=== PATIENT | female | born 1935 | race Caucasian/White ===

== ENCOUNTER → 2017-01-13 | Day surgery (SDC) | payer MEDICARE, BC ==
--- NOTE | 2017-01-12 12:25 | MH ---
cc: JULIA TOBAR M.D. DATE OF ADMISSION: 01/13/2017 DATE OF 1935 CHIEF COMPLAINT Chronic otitis. HISTORY An 81-year-old female with left serous otitis. She has been treated medically, not improved. She continues with conductive hearing loss, left otitis media. She will undergo left myringotomy and T-tube under general anesthesia. She was not able tolerate this under local. PAST MEDICAL HISTORY As above. CURRENT MEDICATIONS 1. Diazepam 5 mg tablet. 2. Dorzolamide - Timolol drops. 3. Epinastine. 4. Hydrocodone/acetaminophen 5/325 tablet. 5. Latanoprost. 6. Lisinopril. 7. Metronidazole gel. MEDICATION ALLERGIES ALPHAGAN P. AMBIEN. CIPROFLOXACIN. LATEX CONTACT ALLERGY. PHYSICAL EXAMINATION GENERAL: A Well-developed, well-nourished female in no apparent distress. HEENT: Normocephalic, atraumatic. Extraocular motions intact. External canals clear. Tympanic membrane on the left retracted with serous fluid. Nasal exam shows no lesion. Lips, oral mucosa and oropharynx show no mass. CHEST: Clear to auscultation. HEART: Regular rate. ABDOMEN: Soft. EXTREMITIES: No lesion. NEUROLOGIC: Nonfocal. ASSESSMENT AND PLAN An 81-year-old female with left chronic otitis media to undergo left myringotomy and T-tube under general anesthesia. The risks and benefits were discussed with the patient. The risks include but are not limited to those of anesthesia, bleeding, unfavorable scarring, TM perforation, early tube extrusion, tube retention requiring removal, tube otorrhea requiring removal, early tube extrusion, hearing loss, cholesteatoma. The patient states she understands and accepts the risks of the procedure. MD SUNG Sainz/JASON /11:58 AM /12:11 PM
[~2017-01-13] VITALS: Ht 165.1 cm; Wt 52.1 kg
[~2017-01-13] MED LIST: ACETAMINOPHEN 500 MG CPLT PO PRN; CENTCHW4 CHEW; CHLORHEXIDINE GLUCONATE 2 % 1 PACK (2 CLOTHS) TOPICAL PRN; CITRTAB7 PO; CLAR10CA3 PO; DO NOT ADM ANY ANTICOAGULANT DRUGS PRN; DORZ2SOL LEFT EYE; ELES0.05 LEFT EYE; FAMOTIDINE 20 MG/2 ML VIAL ONE; FEXO15TA PO; INSULIN HUMAN REGULAR 1,000 UNITS/10 ML VIAL SQ PRN; LACTATED RINGER'S 1000 ML IV PRN; LATA0.002 LEFT EYE; LISI10TA3 PO; METOPROLOL TARTRATE 25 MG TAB PO PRN; MORPHINE SULFATE 4 MG/ML INJ IV PRN; OCEA0.653 EACH NARE; OCUVTAB4 PO; OFLOXACIN 0.3% OPTH SOLN 5 ML BTL ONE; ONDANSETRON HCL 4 MG/2 ML VIAL IV PUSH ONE; ONDANSETRON HCL 4 MG/2 ML VIAL IV PUSH PRN; POVIDONE IODINE 5% (ANTISEPSIS KIT) 4 APPLICATIONS EACH NARE PRN; PRAV20TA2 PO; PROPOFOL 200 MG/20 ML AMP IV ONE; SODIUM CHLORID 0.9% 500 ML IV PRN; SYSTSOL EACH EYE; THERSOL2 EACH EYE; UBIQ100C PO; VITA100018 PO; VITATAB11 PO
--- NOTE | 2017-01-13 08:47 | MP ---
cc: JULIA TOBAR DATE OF SURGERY 01/13/2017 DATE OF 1935 INDICATIONS This is an 81-year-old female with history of chronic otitis and left serous otitis, conductive hearing loss, failed medical therapy. She did not tolerate procedure under local. She is to undergo left myringotomy and tube under general anesthesia. PREOPERATIVE DIAGNOSIS Chronic otitis media POSTOPERATIVE DIAGNOSIS Chronic otitis media PROCEDURE Left myringotomy and tube under general anesthesia. SUMMARY [facility] in supine position, successfully placed under general anesthesia and prepared in the usual fashion for this procedure. The left ear was examined under the microscope. A myringotomy incision was made anteriorly and inferiorly. Serous fluid suctioned from the middle ear and a pressure equalization tube was placed without complication. Ofloxin drops applied. The patient tolerated the procedure well, was taken to recovery in stable condition. MD SUNG Sainz/GORGE /8:24 AM /8:33 AM
[2017-01-13 09:13] LABS: AUTOMATED NEUTROPHIL # 4.1 TH/MM3 (1.8-7.7); BASOPHIL # 0.1 TH/MM3 (0-0.2); BASOPHIL % 0.8 % (0.0-2.0); EOSINOPHIL # 0.1 TH/MM3 (0-0.4); EOSINOPHIL % 1.9 % (0.0-4.0); HEMATOCRIT 42.5 % (35.0-46.0); HEMO FLAGS DIFF FINAL; LYMPH % 34.7 % (9.0-44.0); LYMPHOCYTE # 2.6 TH/MM3 (1.0-4.8); MEAN CELL VOLUME 91.1 FL (80.0-100.0); MEAN CORPUSCULAR HEMOGLOBIN 29.5 PG (27.0-34.0); MEAN CORPUSCULAR HGB CONC 32.4 % (32.0-36.0); MONO % 7.4 % (0.0-8.0); NEUT % 55.2 % (16.0-70.0); PLATELET COUNT 275 TH/MM3 (150-450); RED BLOOD COUNT 4.66 MIL/MM3 (4.00-5.30); WHITE BLOOD COUNT 7.4 TH/MM3 (4.0-11.0)
[2017-01-13 12:11] VITALS: BP 166/70; PULSE 72; RESP 18; O2SAT 97
--- NOTE | 2017-01-13 18:09 | EKG ---
Date Performed: 01/13/2017 Time Performed: 08:46:35 PTAGE: 81 years EKG: Sinus rhythm MINIMAL ST DEPRESSION Clinical correlation is recommended BORDERLINE ECG NO PREVIOUS TRACING DOCTOR: Markus Castaneda Interpretating Date/Time 01/13/2017 18:07:34
== END | disposition home or self-care (01) ==
LOC: HSDC 08:20
PROVIDERS: ATTEND Specialist
DX: H65.22 Chronic serous otitis media, left ear (principal); I10 Essential (primary) hypertension; K21.9 Gastro-esophageal reflux disease without esophagitis; H40.9 Unspecified glaucoma; Z01.810 Encounter for preprocedural cardiovascular examination; Z85.820 Personal history of malignant melanoma of skin; Z79.899 Other long term (current) drug therapy
CPT/HCPCS: 00126; 69436; 85025; 93005; J2405; J7120